=== PATIENT | male | born 1990 | race Caucasian/White ===

== ENCOUNTER 2025-09-03 22:17 | Emergency (ER) | payer BC ==
[~2025-09-03] VITALS: Ht 182.9 cm; Wt 140.0 kg
[2025-09-03 23:16] LABS: BLOOD/HGB, URINE NEGATIVE (Negative); KETONE, URINE NEGATIVE (Negative); LEUK ESTERASE, URINE NEGATIVE (negative); NITRITE, URINE NEGATIVE (negative)
[2025-09-03 23:28] LABS: AMPHETAMINES, URINE NEGATIVE (NEGATIVE); BARBITURATES, URINE NEGATIVE (NEGATIVE); BENZODIAZEPINE, URINE NEGATIVE (NEGATIVE); CANNABINOID, URINE NEGATIVE (NEGATIVE); COCAINE, URINE NEGATIVE (NEGATIVE); ECSTASY, URINE NEGATIVE (NEGATIVE); FENTANYL, URINE NEGATIVE (NEGATIVE); METHADONE, URINE NEGATIVE (NEGATIVE); OPIATES, URINE NEGATIVE (NEGATIVE); OXYCODONE, URINE NEGATIVE (NEGATIVE); PHENCYCLIDINE, URINE NEGATIVE (NEGATIVE)
[2025-09-03 23:34] LABS: BACTERIA, URINE 1+ /hpf (negative); CASTS, URINE NONE SEEN \\lpf; CRYSTALS, URINE AMORPHOUS PHOSPH 2+ (0-1+); EPITHELIAL CELLS, URINE NS /lpf (0-1+); REFLEX CULTURE, URINE No (No)
[2025-09-04 00:14] LABS: BASOPHILS 0.7 % (0.2-1.2); EOSINOPHILS 1.4 % (0.8-7.0); LYMPHOCYTES 31.4 % (21.8-53.1); MCH 30.4 PG (25.7-32.2); MCHC 33.1 g/dL (32.3-36.5); MCV 91.8 fL (79.0-92.2); MONOCYTES 8.3 % (5.3-12.2); NEUTROPHILS 57.9 % (34.0-67.9); RBC 5.13 M/uL (4.63-6.08)
[2025-09-04 00:38] LABS: ALT (SGPT) 36 U/L (14-59); AST (SGOT) 16 U/L (15-37); GLOMERULAR FILTRATION RATE,EST 96 mL/min (>60); PROTEIN, TOTAL 8.5 g/dL (6.4-8.2); TSH, 3RD GENERATION 1.193 uIU/mL (0.358-3.740); UREA NITROGEN 10 mg/dL (7-18)
[2025-09-04 00:48] LABS: ALCOHOL, MEDICAL <3 ng/dL (<3)
[2025-09-04 10:35] VITALS: BP 131/100
== END 2025-09-04 10:36 | disposition home or self-care (01) ==
LOC: ED 22:17
PROVIDERS: Emergency Medicine
DX: R45.851 Suicidal ideations (principal); J45.909 Unspecified asthma, uncomplicated; Z91.048 Other nonmedicinal substance allergy status
CPT/HCPCS: 36415; 80053; 80307; 81001; 84443; 85025; 99284; G0480